=== PATIENT | female | born 1940 | race Caucasian/White ===

== ENCOUNTER 2017-06-15 15:22 | Outpatient (CLI) | payer MEDICARE, OTHER ==
--- NOTE | 2017-06-15 16:12 | XRAY Report ---
TWO-VIEW BILATERAL KNEES: 06/15/2017 CLINICAL INDICATION: Knee pain. FINDINGS: Frontal and lateral views of the bilateral knees demonstrate mild degenerative changes. T here is no evidence of acute fracture. No effusion is present. IMPRESSION: MILD BILATERAL OSTEOARTHRITIS. JOB #: [id number] EXT JOB #:[id number]
== END 2017-06-15 15:23 | disposition home or self-care (01) ==
LOC: DI 15:22
PROVIDERS: ATTEND Family Medicine
DX: M25.561 Pain in right knee (principal); M25.562 Pain in left knee
CPT/HCPCS: 73565

== ENCOUNTER 2017-09-20 14:38 | Outpatient (CLI) | payer MEDICARE, OTHER ==
--- NOTE | 2017-09-24 14:05 | Mammography Report ---
DIGITAL SCREENING MAMMOGRAM: 09/20/2017 CLINICAL INDICATION: A 77-year-old for screening. COMPARISON: 08/2016, 08/2014, 08/2013, 08/2012, 07/2011, 07/2010 TECHNIQUE: Routine CC and MLO projections were obtained of the breasts. FINDINGS: The breasts again demonstrate scattered fibroglandular densities bilaterally. Coarse and punctate, typically benign calcifications are present. In the left anterior retroareolar breast, the re are two small adjacent nodules. Further evaluation with spot compression views and possible ultra sound is recommended. No mammographically suspicious findings are appreciated in the right breast. IMPRESSION: INCOMPLETE EXAMINATION. RECOMMENDATION: Additional evaluation of the left breast as above. BIRADS CATEGORY 0 - INCOMPLETE. STANDARD QUALIFYING STATEMENTS 1. This examination was reviewed with the aid of Computer-Aided Detection (CAD). 2. A negative or benign imaging report should not delay biopsy if clinically suspicious findings are present. Consider surgical consultation if warranted. More than 5% of cancers are not identified by i maging. 3. Dense breasts may obscure an underlying neoplasm. JOB #: [id number] EXT JOB #:[id number]
== END 2017-09-20 14:39 | disposition home or self-care (01) ==
LOC: DI.N 14:38
PROVIDERS: ATTEND Family Medicine
DX: Z12.31 Encounter for screening mammogram for malignant neoplasm of breast (principal); N63.42 Unspecified lump in left breast, subareolar
CPT/HCPCS: 77067

== ENCOUNTER 2017-10-16 14:21 | Outpatient (CLI) | payer MEDICARE, OTHER ==
--- NOTE | 2017-10-17 15:49 | Ultrasound Report ---
ADDITIONAL VIEWS LEFT BREAST: 10/16/2017 HISTORY: Follow up abnormal screening mammogram 09/20/2017. TECHNIQUE: Additional spot compression and true lateral views are obtained of the retroareolar left breast. The nodular density seen on the prior mammogram persists on additional views. Ultrasound is performed the same day. LEFT BREAST ULTRASOUND Real-time scanning by the installation and repair technician with saved static images reviewed. Corresponding to the mammographic abnormality in the retroareolar left breast is a cyst measuring 4 x 4 x 5 mm. There are well defined margins, posterior through transmission, and an accentuated back wall. No solid mass is seen. IMPRESSION: BENIGN FINDING LEFT BREAST. BIRADS CATEGORY: 2, BENIGN FINDINGS. SUGGEST RETURN TO ROUTINE SCREENING IN 12 MONTHS. STANDARD QUALIFYING STATEMENTS 1. This examination was reviewed with the aid of Computed-Aided Detection (CAD) . 2. A negative or benign imaging report should not delay biopsy if clinically suspicious findings are present. Consider surgical consultation if warranted. More than 5% of cancers are not identified by imaging. 3. Dense breasts may obscure an underlying neoplasm. :9 JOB #: [id number] EXT JOB #: [id number] SERAFIN
== END 2017-10-16 14:22 | disposition home or self-care (01) ==
LOC: DI 14:21
PROVIDERS: ATTEND Family Medicine
DX: N60.02 Solitary cyst of left breast (principal)
CPT/HCPCS: 76642; G0206

== ENCOUNTER 2017-12-05 10:30 | Outpatient (CLI) | payer MEDICARE, OTHER | END 2017-12-05 10:31 | disposition home or self-care (01) | LOC: LAB.WCP 10:30 | PROVIDERS: ATTEND Physician Assistant Medical | DX: R35.1 Nocturia (principal) | CPT/HCPCS: 87086 ==

== ENCOUNTER 2017-12-12 09:48 | Outpatient (CLI) | payer MEDICARE, OTHER ==
--- NOTE | 2017-12-12 14:06 | Ultrasound Report ---
DATE OF SERVICE: 12/12/2017 COMPLETE ABDOMINAL ULTRASOUND: 12/12/2017 CLINICAL INDICATION: Pain. TECHNIQUE: Real-time scanning was performed with personnel representative static images obtained. FINDINGS: The liver measures 17 cm. Hepatic echogenicity is increased, compatible with fatty infiltration. Incidental cysts are present, measuring up to 1.4 cm in the right lobe and 3.9 cm in the left lobe. No solid hepatic lesion or intrahepatic biliary dilatation is seen. The common bile duct measures 5 mm. The gallbladder is unremarkable. The pancreas appears normal. The kidneys are normal, with the right measuring 10.1 cm and the left measuring 10.4 cm. The spleen measures 8.5 cm, and demonstrates normal echotexture. The abdominal aorta is normal in caliber. The inferior vena cava is unremarkable. No free fluid is present. IMPRESSION: FATTY INFILTRATION OF THE LIVER. TD: 12/12/2017 15:05
== END 2017-12-12 09:49 | disposition home or self-care (01) ==
LOC: DI 09:48
PROVIDERS: ATTEND Physician Assistant Medical
DX: K76.0 Fatty (change of) liver, not elsewhere classified (principal)
CPT/HCPCS: 76700

== ENCOUNTER 2017-12-13 13:11 | Outpatient (CLI) | payer MEDICARE, OTHER ==
--- NOTE | 2017-12-13 16:23 | Ultrasound Report ---
DATE OF SERVICE: 12/13/2017 PELVIC ULTRASOUND: 12/13/2017 CLINICAL INDICATION: Left pelvic pain. TECHNIQUE: Transabdominal pelvic ultrasound performed for global evaluation. Transvaginal pelvic ultrasound performed for detailed evaluation. Real-time scanning performed and static images obtained. FINDINGS: The uterus is retroverted, measuring 6.2 x 4.0 x 2.7 cm. The endometrial echo complex measures 6 mm. No focal myometrial lesion is identified. The right ovary was not confidently identified on transabdominal or transvaginal imaging. No right adnexal mass is seen. The left ovary measures 1.5 x 0.9 x 0.8 cm, and appears unremarkable. No free fluid is present. IMPRESSION: NONVISUALIZATION OF THE RIGHT OVARY, BUT NO EVIDENCE OF RIGHT ADNEXAL MASS. NORMAL UTERUS AND LEFT OVARY. TD: 12/13/2017 16:22
== END 2017-12-13 13:12 | disposition home or self-care (01) ==
LOC: DI 13:11
PROVIDERS: ATTEND Physician Assistant Medical
DX: R10.2 Pelvic and perineal pain (principal); R10.32 Left lower quadrant pain
CPT/HCPCS: 76830; 76856

== ENCOUNTER 2017-12-18 14:45 | Outpatient (CLI) | payer MEDICARE, OTHER | END 2017-12-18 14:46 | disposition home or self-care (01) | LOC: LAB.WCP 14:45 | PROVIDERS: ATTEND Family Medicine | DX: N39.0 Urinary tract infection, site not specified (principal) | CPT/HCPCS: 87086 ==

== ENCOUNTER 2017-12-28 08:00 | Outpatient (CLI) | payer MEDICARE, OTHER ==
[2017-12-28 13:47] LABS: BASOPHILS % (AUTO) 0.5 %; EOSINOPHILS # (AUTO) 0.2 10^3/uL (0.0-0.7); EOSINOPHILS % (AUTO) 2.4 %; HGB - HEMOGLOBIN 13.2 g/dL (12.0-16.0); LYMPHOCYTES # (AUTO) 1.8 10^3/uL (1.5-3.5); LYMPHOCYTES % (AUTO) 20.9 %; MEAN CORPUSCULAR HEMOGLOBIN 31.3 pg (27.0-31.0); MEAN CORPUSCULAR HGB CONC 33.7 g/dL (32.0-36.0); MEAN PLATELET VOLUME 8.5 fL (7.9-10.8); MONOCYTES # (AUTO) 0.8 10^3/uL (0.0-1.0); MONOCYTES % (AUTO) 8.6 %; NEUTROPHILS # (AUTO) 5.9 10^3/uL (1.5-6.6); NEUTROPHILS % (AUTO) 67.6 %; PLT - PLATELET COUNT 250 10^3/uL (130-450); RED BLOOD COUNT 4.22 10^6/uL (4.20-5.40); RED CELL DISTRIBUTION WIDTH 13.3 % (12.0-15.0); WHITE BLOOD COUNT 8.8 x10^3/uL (4.8-10.8)
[2017-12-28 14:08] LABS: HB2 TOTAL 14.3 g/dL; HEMOGLOBIN A1C 0.6 g/dL
[2017-12-28 14:12] LABS: ALBUMIN 3.9 g/dL (3.2-5.5); ALBUMIN/GLOBULIN RATIO 1.2 (1.0-2.2); ALKALINE PHOSPHATASE 55 IU/L (42-121); ALT ALANINE AMINOTRANSFERASE 18 IU/L (10-60); AST ASPARTATE AMINOTRANSFERASE 19 IU/L (10-42); BILIRUBIN,TOTAL 0.5 mg/dL (0.2-1.0); BUN - BLOOD UREA NITROGEN 19 mg/dL (6-20); CALCIUM 9.4 mg/dL (8.5-10.3); CARBON DIOXIDE - CO2 28 mmol/L (21-32); CHLORIDE 104 mmol/L (101-111); CHOL/HDL RATIO 6.7 (<4.4); CHOLESTEROL 242 mg/dL; CREATININE 0.7 mg/dL (0.4-1.0); GFR - MDRD 81 (>89); GLUCOSE 113 mg/dL (70-100); HDL CHOLESTEROL 36 mg/dL; LDL CHOLESTEROL,CALCULATED 148 mg/dL; LDL/HDL RATIO 4.1 (<4.4); SODIUM 137 mmol/L (135-145); TOTAL PROTEIN 7.2 g/dL (6.7-8.2); VLDL CHOLESTEROL 58 mg/dL
== END 2017-12-28 08:01 | disposition home or self-care (01) ==
LOC: LAB.WCP 08:00
PROVIDERS: ATTEND Family Medicine
DX: I10 Essential (primary) hypertension (principal); R53.83 Other fatigue; E78.5 Hyperlipidemia, unspecified; E88.81 Metabolic syndrome and other insulin resistance; R73.01 Impaired fasting glucose
CPT/HCPCS: 36415; 80053; 80061; 83036; 83721; 84443; 85025

== ENCOUNTER 2018-02-12 14:52 | Outpatient (CLI) | payer MEDICARE, OTHER | END 2018-02-12 14:53 | disposition home or self-care (01) | LOC: LAB.R 14:52 | PROVIDERS: ATTEND Family Medicine | DX: N39.0 Urinary tract infection, site not specified (principal) | CPT/HCPCS: 87086 ==

== ENCOUNTER 2018-03-19 14:20 | Outpatient (CLI) | payer MEDICARE, OTHER ==
--- NOTE | 2018-03-19 15:16 | XRAY Report ---
LEG LENGTH SCANOGRAM: 03/19/2018 CLINICAL INDICATION: Leg length discrepancy. FINDINGS: Frontal scanogram of the lower extremities was obtained. The right upper leg, from acetabular roof to tibial plateau, measures 41.8 cm, and the left leg measures 41.3 cm. The right lower leg, from tibial plateau to the talar dome, measures 31.6 cm, and the left leg measures 31.2 cm. IMPRESSION: 9 MM LEG LENGTH DISCREPANCY ABOVE. TD: 03/19/2018 15:14
== END 2018-03-19 14:21 | disposition home or self-care (01) ==
LOC: DI 14:20
PROVIDERS: ATTEND Family Medicine
DX: M21.70 Unequal limb length (acquired), unspecified site (principal)
CPT/HCPCS: 77073

== ENCOUNTER 2018-09-12 15:41 | Outpatient (CLI) | payer MEDICARE, OTHER ==
--- NOTE | 2018-09-13 04:30 | Ultrasound Report ---
Reason: LEG EDEMA, LEFT Procedure Date: 09/12/2018 Accession Number: [id number] / [id number] Procedure: US - Duplex Ext Veins Left CPT Code: FULL RESULT: EXAM: LEFT LOWER EXTREMITY VENOUS ULTRASOUND EXAM DATE: 09/12/2018 04:12 PM. CLINICAL HISTORY: LEG EDEMA, LEFT. COMPARISON: None. TECHNIQUE: Real-time sonographic vascular imaging was performed by the electric shipyard operator through the lower extremity utilizing both color-flow and Doppler spectral analysis. Multiple traffic workforce representative static images were saved for review. FINDINGS: Common Femoral Vein (CFV): Normal. CFV-GSV Junction: Normal. Profunda Femoral Vein (PFV): Normal. Femoral Vein (FV) Prox: Normal. Femoral Vein (FV) Mid: Normal. Femoral Vein (FV) Dist: Normal. Popliteal Vein: Normal. Posterior Tibial Veins: Normal. Peroneal Veins: Normal. Other: None. IMPRESSION: No evidence for left leg deep venous thrombosis. RADIA
== END 2018-09-12 15:42 | disposition home or self-care (01) ==
LOC: DI 15:41
PROVIDERS: ATTEND Family Medicine
DX: R60.0 Localized edema (principal)

== ENCOUNTER 2018-11-13 14:38 | Outpatient (CLI) | payer MEDICARE, OTHER ==
--- NOTE | 2018-11-14 08:31 | Mammography Report ---
Reason: SCREENING MAMMO Procedure Date: 11/13/2018 Accession Number: [id number] / [id number] Procedure: MGN - Screening Mammo Dig Bilat CPT Code: FULL RESULT: EXAM: Screening Mammo Dig Bilat DATE: 11/13/2018 3:02 PM CLINICAL HISTORY: Screening encounter. History of 20 year hormone therapy. TECHNIQUE: Bilateral CC, laterally exaggerated CC, MLO views were obtained. COMPARISON: 10/16/2017 through 08/18/2013. FINDINGS: The breasts demonstrate diffuse fatty replacement bilaterally. Coarse typically benign calcifications are seen bilaterally. Known left breast cyst appears unchanged, therefore benign. No suspicious masses, clustered microcalcifications, or regions of architectural distortion are identified. IMPRESSION: Benign findings RECOMMENDATION: Routine annual screening unless otherwise clinically indicated. BIRADS CATEGORY 2: Benign findings STANDARD QUALIFYING STATEMENTS: 1. This examination was reviewed with the aid of Computer-Aided Detection (CAD). 2. A negative or benign imaging report should not preclude biopsy if clinically suspicious findings are present. 3. Dense breasts may obscure an underlying neoplasm. 4. This examination was reviewed without the aid of 3D breast imaging (tomosynthesis).
== END 2018-11-13 14:39 | disposition home or self-care (01) ==
LOC: DI.N 14:38
DX: Z12.31 Encounter for screening mammogram for malignant neoplasm of breast (principal)
CPT/HCPCS: 77067

== ENCOUNTER → 2019-07-07 | Outpatient (CLI) | payer MEDICARE, OTHER ==
[2019-07-07 13:00] LABS: ALBUMIN 3.8 g/dL (3.2-5.5); ALBUMIN/GLOBULIN RATIO 1.1 (1.0-2.2); ALKALINE PHOSPHATASE 56 IU/L (42-121); ALT ALANINE AMINOTRANSFERASE 17 IU/L (10-60); AST ASPARTATE AMINOTRANSFERASE 20 IU/L (10-42); BILIRUBIN,TOTAL 0.5 mg/dL (0.2-1.0); BUN - BLOOD UREA NITROGEN 23 mg/dL (6-20); CALCIUM 9.5 mg/dL (8.5-10.3); CARBON DIOXIDE - CO2 29 mmol/L (21-32); CHLORIDE 102 mmol/L (101-111); CHOL/HDL RATIO 4.3 (<4.4); CHOLESTEROL 188 mg/dL; CREATININE 0.8 mg/dL (0.4-1.0); GFR - MDRD 69 (>89); GLUCOSE 112 mg/dL (70-100); HDL CHOLESTEROL 44 mg/dL; LDL CHOLESTEROL,CALCULATED 106 mg/dL; LDL/HDL RATIO 2.4 (<4.4); SODIUM 139 mmol/L (135-145); TOTAL PROTEIN 7.3 g/dL (6.7-8.2); VLDL CHOLESTEROL 38 mg/dL
[2019-07-07 13:03] LABS: HB2 TOTAL 14.9 g/dL; HEMOGLOBIN A1C 0.59 g/dL; HEMOGLOBIN A1C % 5.8 % (4.6-6.2)
[2019-07-09 16:01] LABS: ALBUMIN 3.9 g/dL (3.8-4.8); ALPHA 1 GLOBULIN 0.3 g/dL (0.2-0.3); ALPHA 2 GLOBULIN 0.9 g/dL (0.5-0.9); BETA 1 GLOBULIN 0.5 g/dL (0.4-0.6); BETA 2 GLOBULIN 0.4 g/dL (0.2-0.5); GAMMA GLOBULIN 1.1 g/dL (0.8-1.7)
[2019-07-11 03:46] LABS: ALPHA-TOCOPHEROL 19.6 mg/L (5.7-19.9); BETA-GAMMA-TOCOPHEROL 1.9 mg/L (< 4.4)
== END ==
LOC: LAB.WCP 08:00
PROVIDERS: ATTEND Family Medicine
DX: G62.9 Polyneuropathy, unspecified (principal); I10 Essential (primary) hypertension; E78.5 Hyperlipidemia, unspecified; R73.9 Hyperglycemia, unspecified
CPT/HCPCS: 36415; 80053; 80061; 81599; 82607; 83036; 83721; 83921; 84155; 84165; 84207; 84425; 84446; 85651; 86140; 86334

== ENCOUNTER 2019-07-08 08:50 | Outpatient (CLI) | payer MEDICARE, OTHER ==
--- NOTE | 2019-07-09 10:36 | Ultrasound Report ---
Reason: NEUROPATHY, HYPERGLYCEMIA, LACUNAR INFARCTION, LEF Procedure Date: 07/08/2019 Accession Number: [id number] / [id number] Procedure: US - Carotid Doppler Complete CPT Code: FULL RESULT: EXAM: BILATERAL CAROTID AND VERTEBRAL ARTERY DUPLEX DOPPLER ULTRASOUND: EXAM DATE: 07/08/2019 01:39 PM CLINICAL HISTORY: Neuropathy, hyperglycemia, lacunar infarction, left. COMPARISON: None. TECHNIQUE: Grayscale imaging, color Doppler, and duplex spectral Doppler were used to evaluate the carotid and vertebral arteries bilaterally. Static images were obtained. FINDINGS: There is mild bilateral intimal thickening as well as subjectively mild amount of hyperechoic plaque in the bifurcation regions on grayscale Doppler occupying less than 30% of the lumen as seen. No significant plaque is identified in the right or left common carotid arteries. Normal antegrade flow is present in bilateral vertebral arteries. VELOCITIES (cm/sec): Right CCA mid: PSV 97 cm/sec CCA dist: PSV 63 cm/sec ICA prox: PSV 68 cm/sec, EDV 20 cm/sec ICA mid: PSV 63 cm/sec, EDV 16 cm/sec ICA dist: PSV 66 cm/sec, EDV 18 cm/sec ECA: PSV 105 cm/sec Vert: PSV 42 cm/sec ICA/CCA: 0.7 Left CCA mid: PSV 76 cm/sec CCA dist: PSV 84 cm/sec ICA prox: PSV 69 cm/sec, EDV 15 cm/sec ICA mid: PSV 71 cm/sec, EDV 20 cm/sec ICA dist: PSV 65 cm/sec, EDV 18 cm/sec ECA: PSV 67 cm/sec Vert: PSV 42 cm/sec ICA/CCA: 0.8 ICA diameter stenosis: Right: <50% by velocity and <70% by NASCET criteria. Left: <50% by velocity and <70% by NASCET criteria. IMPRESSION: 1. Mild bilateral carotid artery plaquing limited to the regions of the carotid bifurcations. 2. In the right carotid artery there are no elevated carotid artery velocities to suggest hemodynamically significant stenosis. 3. In the left carotid artery there are no elevated carotid artery velocities to suggest hemodynamically significant stenosis. 4. Normal antegrade flow is present in bilateral vertebral arteries. General Recommendations: Stenosis =50% ICA - Follow-up ultrasound 6-12 months Stenosis <50% ICA - High Risk Patient with plaque - Follow-up ultrasound 1-2 years Normal Study but High Risk Patient - Follow-up ultrasound 3-5 years Management recommendations and diagnostic criteria are based on current IAC endorsed standards in Carotid Artery Stenosis: Grayscale and Doppler Ultrasound Diagnosis. Validated velocity measurements with angiographic measurements and velocity criteria are extrapolated from diameter data as defined by the Society of Radiologists in Ultrasound Consensus Conference Radiology 2003; 229;340-346. RADIA
== END 2019-07-08 08:51 | disposition home or self-care (01) ==
LOC: DI 08:50
PROVIDERS: ATTEND Internal Medicine
DX: G62.9 Polyneuropathy, unspecified (principal); R73.9 Hyperglycemia, unspecified; I63.81 Other cerebral infarction due to occlusion or stenosis of small artery; R20.0 Anesthesia of skin; I35.1 Nonrheumatic aortic (valve) insufficiency
CPT/HCPCS: 93306; 93880

== ENCOUNTER 2019-12-03 11:22 | Outpatient (CLI) | payer MEDICARE, OTHER ==
--- NOTE | 2019-12-03 15:03 | Mammography Report ---
Reason: ROUTINE MAMMO Procedure Date: 12/03/2019 Accession Number: [id number] / [id number] Procedure: MGN - Screening Mammo Dig Bilat CPT Code: Final Report FULL RESULT: EXAM: Screening Mammo Dig Bilat DATE: 12/03/2019 11:42 AM CLINICAL HISTORY: The patient is an asymptomatic 79-year-old female. No family history breast cancer TECHNIQUE: (B) - Bilateral CC, laterally exaggerated CC, MLO views were obtained. COMPARISON: 11/13/2018, 09/20/2017, 09/05/2016, 08/31/2014 and 08/18/2013 PARENCHYMAL PATTERN: (A) - The breasts demonstrate scattered fibroglandular densities bilaterally. FINDINGS: The pattern of asymmetry is stable given positional variation. Few scattered calcific lesions noted. Isodense small masses (known cysts) in the left breast are stable. There are no suspicious masses, calcifications, or areas of distortion. IMPRESSION: Benign findings. BI-RADS category 2. RECOMMENDATION: (ANNUAL) - Recommend routine annual screening mammography. BI-RADS CATEGORY: STANDARD QUALIFYING STATEMENTS: A negative or benign imaging report should not preclude biopsy if clinically suspicious findings are present. Dense breasts may obscure an underlying neoplasm.
== END 2019-12-03 11:23 | disposition home or self-care (01) ==
LOC: DI.N 11:22
DX: Z12.31 Encounter for screening mammogram for malignant neoplasm of breast (principal)
CPT/HCPCS: 77067

== ENCOUNTER 2020-04-21 08:00 | Outpatient (CLI) | payer MEDICARE, OTHER ==
[2020-04-21 18:30] LABS: BASOPHILS % (AUTO) 0.3 %; EOSINOPHILS # (AUTO) 0.2 10^3/uL (0.0-0.7); EOSINOPHILS % (AUTO) 2.4 %; HGB - HEMOGLOBIN 13.9 g/dL (12.0-16.0); LYMPHOCYTES # (AUTO) 2.1 10^3/uL (1.5-3.5); LYMPHOCYTES % (AUTO) 24.4 %; MEAN CORPUSCULAR HEMOGLOBIN 32.1 pg (27.0-31.0); MEAN CORPUSCULAR HGB CONC 32.1 g/dL (32.0-36.0); MEAN PLATELET VOLUME 10.2 fL (7.9-10.8); MONOCYTES % (AUTO) 11.1 %; NEUTROPHILS # (AUTO) 5.4 10^3/uL (1.5-6.6); NEUTROPHILS % (AUTO) 61.2 %; PLT - PLATELET COUNT 250 10^3/uL (130-450); RED BLOOD COUNT 4.33 10^6/uL (4.20-5.40); WHITE BLOOD COUNT 8.7 x10^3/uL (4.8-10.8)
== END 2020-04-21 23:59 | disposition home or self-care (01) ==
LOC: LAB.WCP 08:00
PROVIDERS: ATTEND Family Medicine
DX: E53.8 Deficiency of other specified B group vitamins (principal)
CPT/HCPCS: 36415; 82607; 83921; 85025

== ENCOUNTER 2020-10-27 16:03 | Outpatient (CLI) | payer MEDICARE, OTHER ==
[2020-10-27 18:14] LABS: BASOPHILS % (AUTO) 0.3 %; EOSINOPHILS # (AUTO) 0.2 10^3/uL (0.0-0.7); EOSINOPHILS % (AUTO) 1.8 %; HCT - HEMATOCRIT 42.7 % (37.0-47.0); HGB - HEMOGLOBIN 13.9 g/dL (12.0-16.0); LYMPHOCYTES # (AUTO) 2.3 10^3/uL (1.5-3.5); LYMPHOCYTES % (AUTO) 21.7 %; MEAN CORPUSCULAR HEMOGLOBIN 31.3 pg (27.0-31.0); MEAN CORPUSCULAR HGB CONC 32.6 g/dL (32.0-36.0); MEAN CORPUSCULAR VOLUME 96.2 fL (81.0-99.0); MEAN PLATELET VOLUME 10.2 fL (7.9-10.8); MONOCYTES # (AUTO) 1.2 10^3/uL (0.0-1.0); MONOCYTES % (AUTO) 11.6 %; NEUTROPHILS # (AUTO) 6.9 10^3/uL (1.5-6.6); NEUTROPHILS % (AUTO) 64.2 %; PLT - PLATELET COUNT 273 10^3/uL (130-450); RED BLOOD COUNT 4.44 10^6/uL (4.20-5.40); WHITE BLOOD COUNT 10.7 x10^3/uL (4.8-10.8)
[2020-10-27 18:33] LABS: ALBUMIN 4.2 g/dL (3.2-5.5); ALBUMIN/GLOBULIN RATIO 1.2 (1.0-2.2); ALKALINE PHOSPHATASE 58 IU/L (42-121); ALT ALANINE AMINOTRANSFERASE 19 IU/L (10-60); AST ASPARTATE AMINOTRANSFERASE 19 IU/L (10-42); BILIRUBIN,TOTAL 0.7 mg/dL (0.2-1.0); BUN - BLOOD UREA NITROGEN 22 mg/dL (6-20); CALCIUM 10.2 mg/dL (8.5-10.3); CARBON DIOXIDE - CO2 28 mmol/L (21-32); CHLORIDE 103 mmol/L (101-111); CHOLESTEROL 210 mg/dL; CREATININE 0.9 mg/dL (0.4-1.0); GFR - MDRD 60 (>89); GLUCOSE 120 mg/dL (70-100); HDL CHOLESTEROL 42 mg/dL; LDL CHOLESTEROL,CALCULATED 111 mg/dL; LDL/HDL RATIO 2.6 (<4.4); POTASSIUM 3.8 mmol/L (3.5-5.0); SODIUM 141 mmol/L (135-145); TOTAL PROTEIN 7.7 g/dL (6.7-8.2); TRIGLYCERIDES 287 mg/dL; VLDL CHOLESTEROL 57 mg/dL
[2020-10-27 18:43] LABS: THYROID STIMULATING HORMONE 2.71 uIU/mL (0.34-5.60)
[2020-10-27 18:57] LABS: ESTIMATED AVERAGE GLUCOSE 126 mg/dL (70-100)
== END 2020-10-27 23:59 | disposition home or self-care (01) ==
LOC: LAB.WCP 16:03
PROVIDERS: ATTEND Family Medicine
DX: E88.1 Lipodystrophy, not elsewhere classified (principal); I10 Essential (primary) hypertension; R73.01 Impaired fasting glucose; E53.8 Deficiency of other specified B group vitamins
CPT/HCPCS: 36415; 80053; 80061; 82607; 83036; 83721; 84443; 85025

== ENCOUNTER 2020-12-06 15:17 | Outpatient (CLI) | payer MEDICARE, OTHER ==
--- NOTE | 2020-12-07 09:45 | Mammography Report ---
BILATERAL DIGITAL SCREENING MAMMOGRAM 3D/2D: 12/06/2020 CLINICAL: Routine screening. Comparison is made to exams dated: 12/03/2019 mammogram, 11/13/2018 mammogram, 10/16/2017 mammogram, 10/16/2017 ultrasound, 09/20/2017 mammogram, and 09/05/2016 mammogram - [facility]. The tissue of both breasts is predominantly fatty. There is a possible 0.7 cm irregular equal density focal asymmetry in the right breast at 9 o'clock m iddle depth. This is more prominent. There is possible architectural distortion associated with the focal asymmetry. No other significant masses, calcifications, or other findings are seen in either breast. IMPRESSION: INCOMPLETE: NEEDS ADDITIONAL IMAGING EVALUATION The possible 0.7 cm irregular equal density focal asymmetry in the right breast is indeterminate. Ad ditional views with possible ultrasound are recommended. This exam was interpreted at Station ID: [id number]. NOTE: For mammograms, a report in lay terms will be sent to the patient. Approximately 15% of breast malignancies will not be visualized mammographically. In the management of a palpable breast mass, a negative mammogram must not discourage biopsy of a clinically suspicious lesion. Electronically Signed By: Constantine Jaffe M.D. aty/:12/06/2020 16:39:10 ACR BI-RADS Category 0: Incomplete 3340F PARENCHYMAL PATTERN: (F) - The breast(s) demonstrate(s) diffuse fatty replacement. BI-RADS CATEGORY: (0) - 0 Mammo and [place] [id number] Immediate follow-up LATERALITY: (R)
== END 2020-12-06 15:18 | disposition home or self-care (01) ==
LOC: DI.N 15:17
DX: Z12.31 Encounter for screening mammogram for malignant neoplasm of breast (principal); R92.8 Other abnormal and inconclusive findings on diagnostic imaging of breast

== ENCOUNTER 2021-01-03 10:30 | Outpatient (CLI) | payer MEDICARE, OTHER ==
--- NOTE | 2021-01-04 13:38 | Ultrasound Report ---
LIMITED ULTRASOUND OF RIGHT BREAST: 01/03/2021 CLINICAL: Patient returns today to evaluate a focal asymmetry in the right breast. Comparison is made to exams dated: 01/03/2021 mammogram, 12/06/2020 mammogram, 12/03/2019 mammogram, 11/13/2018 mammogram, 10/16/2017 mammogram, and 10/16/2017 ultrasound - [facility]. Real-time ultrasound of the right breast upper outer quadrant was performed. [place] scale images of th e real-time examination were reviewed. No significant abnormalities were seen sonographically in the right breast. IMPRESSION: PROBABLY BENIGN There is no sonographic abnormality seen in the right breast to correspond with the previously descri bed mammographic finding which is favored to represent normal fibroglandular tissue. A follow-up right mammogram in 6 months is recommended to demonstrate stability. Findings and recommendations were conveyed to the patient during today's evaluation. This exam was interpreted at Station ID: [id number]. Electronically Signed By: Constantine Jaffe M.D. aty/:01/03/2021 12:25:55 Ultrasound BI-RADS: 3 Probably benign BI-RADS CATEGORY: (3) - 3 Mammogram [id number] 6 month follow-up LATERALITY: (R)
--- NOTE | 2021-01-04 13:38 | Mammography Report ---
UNILATERAL RIGHT DIGITAL DIAGNOSTIC MAMMOGRAM 3D/2D: 01/03/2021 CLINICAL: Patient returns today to evaluate a focal asymmetry in the right breast. Comparison is made to exams dated: 12/06/2020 mammogram, 12/03/2019 mammogram, 11/13/2018 mammogram, 10/16/2017 mammogram, and 09/20/2017 mammogram - [facility]. The tissue of right breast is predominantly fatty. The previously described possible 0.7 cm irregular equal density focal asymmetry in the right breast at 9 o'clock middle depth appears much less prominent and decreased in size, demonstrating near compl ete dispersion. The possible architectural distortion associated with the focal asymmetry on comparis on mammogram is not appreciated on today's study. No other significant masses or calcifications are seen in the breast. IMPRESSION: INCOMPLETE: NEEDS ADDITIONAL IMAGING EVALUATION The previously described possible 0.7 cm irregular equal density focal asymmetry in the right breast at 9 o'clock middle depth has demonstrated near complete resolution and is likely fibroglandular tiss ue but remains indeterminate. An ultrasound is recommended for further evaluation and is scheduled to immediately follow this exami nation. This exam was interpreted at Station ID: [id number]. NOTE: For mammograms, a report in lay terms will be sent to the patient. Approximately 15% of breast malignancies will not be visualized mammographically. In the management of a palpable breast mass, a negative mammogram must not discourage biopsy of a clinically suspicious lesion. Electronically Signed By: Constantine Jaffe M.D. aty/:01/03/2021 12:24:08 ACR BI-RADS Category 0: Incomplete 3340F PARENCHYMAL PATTERN: (F) - The breast(s) demonstrate(s) diffuse fatty replacement. BI-RADS CATEGORY: (0) - 0 Ultrasound [id number] Immediate follow-up LATERALITY: (R)
== END 2021-01-03 10:31 | disposition home or self-care (01) ==
LOC: DI 10:30
PROVIDERS: ATTEND Family Medicine
DX: R92.8 Other abnormal and inconclusive findings on diagnostic imaging of breast (principal)
CPT/HCPCS: 76642; 77061; 77065; G0279

== ENCOUNTER 2021-03-07 17:35 | Outpatient (CLI) | payer MEDICARE, OTHER ==
--- NOTE | 2021-03-08 13:44 | XRAY Report ---
PROCEDURE: Hip w/Pelvis 1V LT INDICATIONS: L HIP PX TECHNIQUE: AP pelvis with lateral view(s) of the left hip(s). COMPARISON: Bilateral hip x-ray 09/05/2017 FINDINGS: Bones: No fractures or dislocations. Pelvic ring appears intact. No suspicious bony lesions. Ther e is moderate to severe right and moderate left degenerative hip joint space narrowing. Areas of inte rval subchondral sclerosis and cystic formation are noted predominantly on the right. Soft tissues: The visualized bowel gas pattern is normal. No suspicious soft tissue calcifications. IMPRESSION: Right greater than left hip osteoarthritis as above. Reviewed by: Merari Farrell MD on 03/08/2021 12:42 PM [facility] Approved by: Merari Farrell MD on 03/08/2021 12:42 PM [facility] Station ID: [id number]
== END 2021-03-07 23:59 | disposition home or self-care (01) ==
LOC: DI.N 17:35
PROVIDERS: ATTEND Family Medicine
DX: M16.0 Bilateral primary osteoarthritis of hip (principal)

== ENCOUNTER 2021-05-26 13:28 | Outpatient (CLI) | payer MEDICARE, OTHER ==
[2021-05-26 18:05] LABS: BASOPHILS # (AUTO) 0.1 10^3/uL (0.0-0.1); BASOPHILS % (AUTO) 0.4 %; EOSINOPHILS # (AUTO) 0.2 10^3/uL (0.0-0.7); EOSINOPHILS % (AUTO) 2.1 %; HCT - HEMATOCRIT 41.9 % (37.0-47.0); HGB - HEMOGLOBIN 13.4 g/dL (12.0-16.0); LYMPHOCYTES # (AUTO) 2.7 10^3/uL (1.5-3.5); LYMPHOCYTES % (AUTO) 24.5 %; MEAN CORPUSCULAR HEMOGLOBIN 29.9 pg (27.0-31.0); MEAN CORPUSCULAR VOLUME 93.5 fL (81.0-99.0); MEAN PLATELET VOLUME 10.3 fL (7.9-10.8); MONOCYTES # (AUTO) 1.2 10^3/uL (0.0-1.0); MONOCYTES % (AUTO) 10.8 %; NEUTROPHILS # (AUTO) 6.9 10^3/uL (1.5-6.6); NEUTROPHILS % (AUTO) 61.8 %; PLT - PLATELET COUNT 326 10^3/uL (130-450); RED BLOOD COUNT 4.48 10^6/uL (4.20-5.40); WHITE BLOOD COUNT 11.2 x10^3/uL (4.8-10.8)
[2021-05-26 18:22] LABS: ALBUMIN 4.1 g/dL (3.2-5.5); ALBUMIN/GLOBULIN RATIO 1.1 (1.0-2.2); ALKALINE PHOSPHATASE 63 IU/L (42-121); ALT ALANINE AMINOTRANSFERASE 21 IU/L (10-60); AST ASPARTATE AMINOTRANSFERASE 21 IU/L (10-42); BILIRUBIN,TOTAL 0.6 mg/dL (0.2-1.0); BUN - BLOOD UREA NITROGEN 21 mg/dL (6-20); CALCIUM 9.6 mg/dL (8.5-10.3); CARBON DIOXIDE - CO2 31 mmol/L (21-32); CHLORIDE 97 mmol/L (101-111); CHOL/HDL RATIO 3.7 (<4.4); CHOLESTEROL 176 mg/dL; CREATININE 0.6 mg/dL (0.4-1.0); GFR - MDRD 96 (>89); GLUCOSE 98 mg/dL (70-100); HDL CHOLESTEROL 48 mg/dL; LDL CHOLESTEROL,CALCULATED 64 mg/dL; LDL/HDL RATIO 1.3 (<4.4); POTASSIUM 3.8 mmol/L (3.5-5.0); SODIUM 137 mmol/L (135-145); TOTAL PROTEIN 7.8 g/dL (6.7-8.2); TRIGLYCERIDES 319 mg/dL; VLDL CHOLESTEROL 64 mg/dL
[2021-05-26 20:39] LABS: ESTIMATED AVERAGE GLUCOSE 131 mg/dL (70-100); HEMOGLOBIN A1c% 6.2 % (4.27-6.07)
== END 2021-05-26 23:59 | disposition home or self-care (01) ==
LOC: LAB.WCP 13:28
PROVIDERS: ATTEND Family Medicine
DX: E78.5 Hyperlipidemia, unspecified (principal); R73.01 Impaired fasting glucose; E53.8 Deficiency of other specified B group vitamins; I10 Essential (primary) hypertension
CPT/HCPCS: 36415; 80053; 80061; 82607; 83036; 83721; 85025

== ENCOUNTER 2021-08-15 11:06 | Outpatient (CLI) | payer MEDICARE, OTHER ==
--- NOTE | 2021-08-17 13:44 | Mammography Report ---
UNILATERAL RIGHT DIGITAL DIAGNOSTIC MAMMOGRAM 3D/2D: 08/15/2021 CLINICAL: Patient returns for a 6 month follow up of the right breast. Comparison is made to exams dated: 01/03/2021 mammogram, 12/06/2020 mammogram, 12/03/2019 mammogram, 11/13/2018 mammogram, 10/16/2017 mammogram, and 10/16/2017 ultrasound - [facility]. The tissue of right breast is predominantly fatty. The previously questioned 0.7 cm focal asymmetry in the right breast at 9 o'clock middle depth is no longer seen and is consistent with fibroglandular tissue. This is not seen in additional views. No other significant masses or calcifications are seen in the breast. IMPRESSION: BENIGN There is no abnormality seen in the right breast to correspond with the previously questioned mammogr aphy finding. This is consistent with fibroglandular tissue which was previously superimposed. There is no mammographic evidence of malignancy. Return to annual mammogram screening schedule is recommend ed. This exam was interpreted at Station ID: [id number]. NOTE: For mammograms, a report in lay terms will be sent to the patient. Approximately 15% of breast malignancies will not be visualized mammographically. In the management of a palpable breast mass, a negative mammogram must not discourage biopsy of a clinically suspicious lesion. Electronically Signed By: Isaias Jaimes M.D. jr/:08/17/2021 12:03:49 ACR BI-RADS Category 2: Benign Finding(s) 3342F PARENCHYMAL PATTERN: (F) - The breast(s) demonstrate(s) diffuse fatty replacement. BI-RADS CATEGORY: (2) - 2 Mammogram [id number] return to screening LATERALITY: (B)
== END 2021-08-15 11:07 | disposition home or self-care (01) ==
LOC: DI 11:06
PROVIDERS: ATTEND Family Medicine
DX: R92.8 Other abnormal and inconclusive findings on diagnostic imaging of breast (principal)

== ENCOUNTER 2021-09-29 08:00 | Outpatient (CLI) | payer MEDICARE, OTHER ==
[2021-09-29 18:02] LABS: BASOPHILS % (AUTO) 0.5 %; EOSINOPHILS # (AUTO) 0.1 10^3/uL (0.0-0.7); EOSINOPHILS % (AUTO) 1.6 %; HCT - HEMATOCRIT 43.9 % (37.0-47.0); HGB - HEMOGLOBIN 13.7 g/dL (12.0-16.0); LYMPHOCYTES % (AUTO) 22.6 %; MEAN CORPUSCULAR HGB CONC 31.2 g/dL (32.0-36.0); MEAN CORPUSCULAR VOLUME 96.1 fL (81.0-99.0); MEAN PLATELET VOLUME 10.9 fL (7.9-10.8); MONOCYTES % (AUTO) 10.9 %; NEUTROPHILS # (AUTO) 5.6 10^3/uL (1.5-6.6); NEUTROPHILS % (AUTO) 64.1 %; PLT - PLATELET COUNT 285 10^3/uL (130-450); RED BLOOD COUNT 4.57 10^6/uL (4.20-5.40); RED CELL DISTRIBUTION WIDTH 15.2 % (12.0-15.0); WHITE BLOOD COUNT 8.8 x10^3/uL (4.8-10.8)
[2021-09-29 18:51] LABS: ALBUMIN 4.4 g/dL (3.2-5.5); ALBUMIN/GLOBULIN RATIO 1.3 (1.0-2.2); ALKALINE PHOSPHATASE 62 IU/L (42-121); ALT ALANINE AMINOTRANSFERASE 20 IU/L (10-60); AST ASPARTATE AMINOTRANSFERASE 22 IU/L (10-42); BILIRUBIN,TOTAL 0.8 mg/dL (0.2-1.0); BUN - BLOOD UREA NITROGEN 22 mg/dL (6-20); CALCIUM 9.8 mg/dL (8.5-10.3); CARBON DIOXIDE - CO2 30 mmol/L (21-32); CHLORIDE 98 mmol/L (101-111); CREATININE 0.8 mg/dL (0.4-1.0); GFR - MDRD 69 (>89); GLUCOSE 111 mg/dL (70-100); POTASSIUM 4.2 mmol/L (3.5-5.0); SODIUM 136 mmol/L (135-145); TOTAL PROTEIN 7.8 g/dL (6.7-8.2)
[2021-09-29 19:04] LABS: CRP - C-REACTIVE PROTEIN < 1.0 mg/dL (0-1.0)
== END 2021-09-29 23:59 | disposition home or self-care (01) ==
LOC: LAB.WCP 08:00
PROVIDERS: ATTEND Nurse Practitioner
DX: I10 Essential (primary) hypertension (principal); R51.9 Headache, unspecified
CPT/HCPCS: 36415; 80053; 85025; 85651; 86140

== ENCOUNTER 2021-11-01 16:42 | Outpatient (CLI) | payer MEDICARE, OTHER ==
--- NOTE | 2021-11-02 10:39 | XRAY Report ---
PROCEDURE: Chest 2 View X-Ray INDICATIONS: SHORTNESS OF BREATH TECHNIQUE: 2 view(s) of the chest. COMPARISON: None. FINDINGS: Surgical changes and devices: None. Lungs and pleura: No pleural effusions or pneumothorax. Lungs are clear. Mediastinum: Mediastinal contours are normal. Heart is mildly enlarged Bones and chest wall: No suspicious bony abnormalities. Soft tissues appear unremarkable. IMPRESSION: 1. Mild cardiomegaly. 2. No acute cardiopulmonary disease process. Reviewed by: Genoveva Dooley MD, PhD on 11/02/2021 10:38 AM [facility] Approved by: Genoveva Dooley MD, PhD on 11/02/2021 10:38 AM [facility] Station ID: [id number]
== END 2021-11-01 16:43 | disposition home or self-care (01) ==
LOC: DI.N 16:42
PROVIDERS: ATTEND Family Medicine
DX: R06.09 Other forms of dyspnea (principal); I51.7 Cardiomegaly

== ENCOUNTER 2021-11-03 08:00 | Outpatient (CLI) | payer MEDICARE, OTHER | END 2021-11-03 23:59 | disposition home or self-care (01) | LOC: LAB.WCP 08:00 | PROVIDERS: ATTEND Family Medicine | DX: R06.09 Other forms of dyspnea (principal); Z20.822 Contact with and (suspected) exposure to COVID-19 ==

== ENCOUNTER 2021-12-27 07:57 | Outpatient (CLI) | payer MEDICARE, OTHER ==
--- NOTE | 2021-12-27 08:24 | CARDIAC PROCEDURE NOTE ---
Stress Test Report Service Date: 12/27/21 Service Time: 08:00 Ordering Provider: Otf Luke Indication for Test: Assess exertional dyspnea. Significant Medical History: Cynthia describes slowly progressive exertional dyspnea over the past 3 to 4 years, with episodic exacerbation that she attributes to psychosocial stress, due to her 's myelofibrosis and heart failure. He has become increasingly dependent on her for his care, especially over the past few months, with a corresponding generalized increase in her exertional dyspnea. Although she does feel well while continuing to participate in yoga exercise three times per week, she finds that she is no longer able to walk her 50 pound infante retriever very far, or make it back up to her house from the mailbox that is located a few hundred yards down the hill. She is able to walk up the single flight of stairs within her home but finds that she usually has to rest afterward. She also describes some associated right hip and back pain as limiting factors for exertion She denies exertional concomitants such as chest discomfort, heaviness or pressure, diaphoresis or lightheadedness. She denies orthopnea, lower extremity edema and weight gain. She had a prior diagnostic echocardiogram in June, that showed borderline concentric LVH, normal LV systolic function and wall motion, normal size left atrium and a mildly sclerotic aortic valve with mild aortic insufficiency. The study was done due to concern for possible TIA and a saline bubble study was negative for atrial shunt. Cardiac Risk Factors: Positive for treated hypertension and hyperlipidemia. Negative for tobacco smoking (quit 52 years ago) and diabetes. She is unaware of close family members with heart attack or stroke. Type of Stress Test: ETT with Echocardiography Procedure: -Exercise Treadmill Test- After signing informed consent, the patient underwent rest echo imaging, that revealed suboptimal imaging quality. Therefore Definity contrast was administered (under separate consent) and repeat images were obtained. She then performed treadmill exercise using a Modified Rod protocol. The patient exe rcised for 7 minutes 36 seconds and achieved a peak heart rate of 112 (80 percent predicted maximum heart rate for age), and an estimated workload of 4.4 METS. The test was terminated due to leg fatigue and sense of poor balance in the setting of a drop in blood pressure following initial normal increase. Resting heart rate: 75 Peak heart rate: 112 Submaximal response to exercise. Resting BP: 133/72 Peak BP: 158/70 (stage 2) Below average BP increase with exercise, with incremental BP decrease (to 144/66) in stage 3. Rhythm during exercise: Sinus rhythm with rare isolated PVCs. Symptoms: Although she described progressive dyspnea to a moderate degree, leg fatigue and sensation of poor balance were more limiting; no chest discomfort described. EKG at rest showed normal sinus rhythm, with left anterior fascicular block and incomplete right bundle branch block; small q waves present in leads V1 & V2, cannot exclude septal infarct pattern, age undetermined. EKG at peak stress showed no ischemia by EKG criteria. In Recovery blood pressure initially increased slightly (149/61) and then declined toward baseline level; HR rapidly and normally returned to resting level by 6:00. Echo imaging performed at rest and with stress will be reported separately. IHiram MD, was present throughout this treadmill stress study and supervised it in its entirety. Summary: 1) Exercise tolerance well above average for age (using age 79) as evidenced by RAMÓN of -42%. 2) Abnormal resting EKG. 3) Submaximal exercise study, with patient reaching only 80% of predicted maximal for age. 4) Abnormal BP response to exercise. 5) No ischemic changes by EKG criteria were seen at peak stress. 6) Echo image interpretation reveals normal left ventricular size and systolic function, with appropriate hyperdynamic augmentation of all segments with exercise, indicating no evidence of prior infarct or inducible ischemia. See separate report for more details. CONCLUSIONS: 1) Submaximal exercise test, with no clear evidence of ischemia by symptoms or EKG. 2) Given inability to reach target HR as well as moderate BP drop during exercise, an alternative diagnostic method (e.g. pharmacologic stress MPI or coronary CT angiogram) could be considered if concern for ischemia persists.
[2021-12-27] MEDS ORDERED: PERFLUTREN LIPID MICROSPHERES 1.65 MG/1.5 ML VIAL IVP ONE (10:40)
== END 2021-12-27 07:58 | disposition home or self-care (01) ==
LOC: DI 07:57
PROVIDERS: ATTEND Family Medicine
DX: R06.09 Other forms of dyspnea (principal); I95.89 Other hypotension
CPT/HCPCS: 93016; 93017; 93018; 93350; Q9957

== ENCOUNTER 2022-07-11 07:13 | Outpatient (CLI) | payer MEDICARE, OTHER ==
[2022-07-11 11:52] LABS: BASOPHILS # (AUTO) 0.1 10^3/uL (0.0-0.1); BASOPHILS % (AUTO) 0.5 %; EOSINOPHILS # (AUTO) 0.3 10^3/uL (0.0-0.7); EOSINOPHILS % (AUTO) 2.4 %; HCT - HEMATOCRIT 37.7 % (37.0-47.0); HGB - HEMOGLOBIN 11.8 g/dL (12.0-16.0); LYMPHOCYTES # (AUTO) 2.1 10^3/uL (1.5-3.5); LYMPHOCYTES % (AUTO) 20.2 %; MEAN CORPUSCULAR HEMOGLOBIN 29.1 pg (27.0-31.0); MEAN CORPUSCULAR HGB CONC 31.3 g/dL (32.0-36.0); MEAN CORPUSCULAR VOLUME 93.1 fL (81.0-99.0); MEAN PLATELET VOLUME 10.7 fL (7.9-10.8); MONOCYTES # (AUTO) 1.1 10^3/uL (0.0-1.0); MONOCYTES % (AUTO) 10.9 %; NEUTROPHILS # (AUTO) 6.8 10^3/uL (1.5-6.6); NEUTROPHILS % (AUTO) 65.6 %; PLT - PLATELET COUNT 294 10^3/uL (130-450); RED BLOOD COUNT 4.05 10^6/uL (4.20-5.40); RED CELL DISTRIBUTION WIDTH 14.5 % (12.0-15.0); WHITE BLOOD COUNT 10.3 x10^3/uL (4.8-10.8)
[2022-07-11 12:20] LABS: ALBUMIN 3.9 g/dL (3.2-5.5); ALKALINE PHOSPHATASE 61 IU/L (42-121); ALT ALANINE AMINOTRANSFERASE 20 IU/L (10-60); AST ASPARTATE AMINOTRANSFERASE 20 IU/L (10-42); BILIRUBIN,TOTAL 0.5 mg/dL (0.2-1.0); BUN - BLOOD UREA NITROGEN 28 mg/dL (6-20); CALCIUM 9.6 mg/dL (8.5-10.3); CARBON DIOXIDE - CO2 30 mmol/L (21-32); CHLORIDE 101 mmol/L (101-111); CHOL/HDL RATIO 4.1 (<4.4); CHOLESTEROL 177 mg/dL; CREATININE 0.8 mg/dL (0.4-1.0); GFR - MDRD 69 (>89); GLUCOSE 120 mg/dL (70-100); HDL CHOLESTEROL 43 mg/dL; LDL CHOLESTEROL,CALCULATED 103 mg/dL; LDL/HDL RATIO 2.4 (<4.4); SODIUM 139 mmol/L (135-145); TOTAL PROTEIN 7.7 g/dL (6.7-8.2); TRIGLYCERIDES 157 mg/dL; VLDL CHOLESTEROL 31 mg/dL
== END 2022-07-11 07:14 | disposition home or self-care (01) ==
LOC: LAB.N 07:13
PROVIDERS: ATTEND Physician Assistant
DX: I10 Essential (primary) hypertension (principal); E78.5 Hyperlipidemia, unspecified
CPT/HCPCS: 36415; 80053; 80061; 83721; 85025

== ENCOUNTER 2022-11-16 11:47 | Outpatient (CLI) | payer MEDICARE, OTHER ==
[2022-11-16 12:40] LABS: THYROID STIMULATING HORMONE 3.15 uIU/mL (0.34-5.60)
[2022-11-16 12:48] LABS: ESTIMATED AVERAGE GLUCOSE 123 mg/dL (70-100); HEMOGLOBIN A1c% 5.9 % (4.27-6.07)
== END 2022-11-16 11:48 | disposition home or self-care (01) ==
LOC: LAB 11:47
PROVIDERS: ATTEND Physician Assistant
DX: R73.01 Impaired fasting glucose (principal); R53.83 Other fatigue
CPT/HCPCS: 36415; 83036; 84443

== ENCOUNTER 2023-02-26 12:50 | Outpatient (CLI) | payer MEDICARE, OTHER ==
[2023-02-26 13:05] LABS: BASOPHILS # (AUTO) 0.1 10^3/uL (0.0-0.1); BASOPHILS % (AUTO) 0.6 %; EOSINOPHILS # (AUTO) 0.2 10^3/uL (0.0-0.7); EOSINOPHILS % (AUTO) 2.4 %; HCT - HEMATOCRIT 39.8 % (37.0-47.0); HGB - HEMOGLOBIN 12.7 g/dL (12.0-16.0); LYMPHOCYTES # (AUTO) 2.5 10^3/uL (1.5-3.5); LYMPHOCYTES % (AUTO) 24.7 %; MEAN CORPUSCULAR HGB CONC 31.9 g/dL (32.0-36.0); MEAN CORPUSCULAR VOLUME 94.1 fL (81.0-99.0); MEAN PLATELET VOLUME 9.4 fL (7.9-10.8); MONOCYTES # (AUTO) 0.9 10^3/uL (0.0-1.0); MONOCYTES % (AUTO) 8.7 %; NEUTROPHILS # (AUTO) 6.3 10^3/uL (1.5-6.6); NEUTROPHILS % (AUTO) 63.2 %; PLT - PLATELET COUNT 257 10^3/uL (130-450); RED BLOOD COUNT 4.23 10^6/uL (4.20-5.40); RED CELL DISTRIBUTION WIDTH 16.7 % (12.0-15.0); WHITE BLOOD COUNT 9.9 x10^3/uL (4.8-10.8)
[2023-02-26 13:25] LABS: ESTIMATED AVERAGE GLUCOSE 126 mg/dL (70-100)
[2023-02-26 13:31] LABS: CREATININE 0.9 mg/dL (0.4-1.0); POTASSIUM 3.6 mmol/L (3.5-5.0)
== END 2023-02-26 12:51 | disposition home or self-care (01) ==
LOC: LAB 12:50
PROVIDERS: ATTEND Orthopaedic Surgery Orthopaedic Surgery of the Spine
DX: Z01.812 Encounter for preprocedural laboratory examination (principal); R73.9 Hyperglycemia, unspecified
CPT/HCPCS: 36415; 80048; 83036; 85025

== ENCOUNTER 2023-03-02 11:46 | Outpatient (CLI) | payer MEDICARE, OTHER | END 2023-03-02 11:47 | disposition home or self-care (01) | LOC: RT 11:46 | PROVIDERS: ATTEND Orthopaedic Surgery Orthopaedic Surgery of the Spine | DX: Z01.818 Encounter for other preprocedural examination (principal) | CPT/HCPCS: 93005 ==

== ENCOUNTER 2023-08-20 07:19 | Outpatient (CLI) | payer MEDICARE, OTHER ==
[2023-08-20 11:58] LABS: BASOPHILS % (AUTO) 0.5 %; EOSINOPHILS # (AUTO) 0.2 10^3/uL (0.0-0.7); EOSINOPHILS % (AUTO) 3.2 %; HCT - HEMATOCRIT 41.6 % (37.0-47.0); HGB - HEMOGLOBIN 12.9 g/dL (12.0-16.0); LYMPHOCYTES # (AUTO) 2.3 10^3/uL (1.5-3.5); LYMPHOCYTES % (AUTO) 31.1 %; MEAN CORPUSCULAR HEMOGLOBIN 29.5 pg (27.0-31.0); MEAN CORPUSCULAR VOLUME 95.2 fL (81.0-99.0); MEAN PLATELET VOLUME 10.5 fL (7.9-10.8); MONOCYTES # (AUTO) 0.9 10^3/uL (0.0-1.0); MONOCYTES % (AUTO) 11.4 %; NEUTROPHILS % (AUTO) 53.5 %; PLT - PLATELET COUNT 273 10^3/uL (130-450); RED BLOOD COUNT 4.37 10^6/uL (4.20-5.40); RED CELL DISTRIBUTION WIDTH 15.9 % (12.0-15.0); WHITE BLOOD COUNT 7.5 x10^3/uL (4.8-10.8)
[2023-08-20 12:22] LABS: ALBUMIN 4.1 g/dL (3.2-5.5); ALBUMIN/GLOBULIN RATIO 1.3 (1.0-2.2); ALKALINE PHOSPHATASE 74 IU/L (42-121); ALT ALANINE AMINOTRANSFERASE 14 IU/L (10-60); AST ASPARTATE AMINOTRANSFERASE 18 IU/L (10-42); BILIRUBIN,TOTAL 0.3 mg/dL (0.2-1.0); BUN - BLOOD UREA NITROGEN 19 mg/dL (6-20); CARBON DIOXIDE - CO2 33 mmol/L (21-32); CHLORIDE 103 mmol/L (101-111); CHOL/HDL RATIO 4.1 (<4.4); CHOLESTEROL 198 mg/dL; CREATININE 0.9 mg/dL (0.6-1.3); GFR - MDRD 60 (>89); GLUCOSE 106 mg/dL (74-104); HDL CHOLESTEROL 48 mg/dL; LDL CHOLESTEROL,CALCULATED 102 mg/dL; LDL/HDL RATIO 2.1 (<4.4); POTASSIUM 4.1 mmol/L (3.5-4.5); SODIUM 141 mmol/L (135-145); TOTAL PROTEIN 7.2 g/dL (6.4-8.9); TRIGLYCERIDES 238 mg/dL (48-352); VLDL CHOLESTEROL 48 mg/dL
[2023-08-20 12:23] LABS: ESTIMATED AVERAGE GLUCOSE 123 mg/dL (70-100); HEMOGLOBIN A1c% 5.9 % (4.27-6.07)
[2023-08-20 12:31] LABS: THYROID STIMULATING HORMONE 4.09 uIU/mL (0.34-5.60)
== END 2023-08-20 07:20 | disposition home or self-care (01) ==
LOC: LAB.N 07:19
PROVIDERS: ATTEND Physician Assistant
DX: I10 Essential (primary) hypertension (principal); E78.5 Hyperlipidemia, unspecified; E88.810 Metabolic syndrome
CPT/HCPCS: 36415; 80053; 80061; 83036; 83721; 84443; 85025

== ENCOUNTER 2023-09-06 14:23 | Outpatient (CLI) | payer MEDICARE, OTHER ==
--- NOTE | 2023-09-06 17:45 | DEXA Report ---
PROCEDURE: Dexa Spine and/or Hip INDICATIONS: POST MENOPAUSAL TECHNIQUE: Dual energy x-ray absorptiometry (DXA) was performed on a Compology System. Regions measur ed are the AP Spine, femoral neck, and if needed forearm. COMPARISON: None FINDINGS: Lumbar Spine: Bone Mineral Density 1.162 g/cm/cm,T score -0.1. Left Femoral Neck: Bone Mineral Density 0.812 g/cm/cm, T score -1.6. Left Hip: Bone Mineral Density 0.879 g/cm/cm,T score -1.0. (T score greater or equal to -1.0: NORMAL) (T score from -1.1 to -2.4: OSTEOPENIA) (T score less than or equal to -2.5 to: OSTEOPOROSIS) Impression: By WHO criteria, this patient has low bone density (osteopenia) of the left femoral neck. No osteopenia or osteoporosis of the lumbar spine. No osteopenia or osteoporosis of the left total hi p. Patients with diagnosis of osteoporosis or osteopenia should have regular bone mineral density assess ment. For those eligible for Medicare, routine testing is allowed once every 2 years. Testing frequ ency can be increased for patients who have rapidly progressing disease or for those who are receivin g medical therapy to restore bone mass. Reviewed by: Adelaida Peña MD on 09/06/2023 5:44 PM PDT Approved by: Adelaida Peña MD on 09/06/2023 5:44 PM PDT Station ID: [id number]
== END 2023-09-06 14:24 | disposition home or self-care (01) ==
LOC: DI 14:23
PROVIDERS: ATTEND Physician Assistant
DX: Z78.0 Asymptomatic menopausal state (principal); M85.88 Other specified disorders of bone density and structure, other site

== ENCOUNTER 2024-03-24 11:35 | Outpatient (CLI) | payer MEDICARE, OTHER ==
--- NOTE | 2024-03-25 08:55 | Mammography Report ---
BILATERAL DIGITAL SCREENING MAMMOGRAM 3D/2D: 03/24/2024 CLINICAL: Routine screening. Comparison is made to exams dated: 08/15/2021 mammogram, 01/03/2021 ultrasound, 01/03/2021 mammogram, mammogram, 12/03/2019 mammogram, and 11/13/2018 mammogram - [facility]. Both breasts are almost entirely fatty (category a/<25% glandular tissue). No significant masses, calcifications, or other findings are seen in either breast. There has been no significant interval change. IMPRESSION: NEGATIVE There is no mammographic evidence of malignancy. A 1 year screening mammogram is recommended. Based on the Tyrer Cuzick model (a risk assessment model) the patient's lifetime risk is 0.1% and her 10 year risk is 0.0%. According to the ACR, ACS, and NCCN guidelines, an annual breast MRI exam barbara g with mammogram is recommended if the patient's lifetime risk is 20% or greater. This exam was interpreted at Station ID: [id number]. NOTE: For mammograms, a report in lay terms will be sent to the patient. Approximately 15% of breast malignancies will not be visualized mammographically. In the management of a palpable breast mass, a negative mammogram must not discourage biopsy of a clinically suspicious lesion. Electronically Signed By: Rafi hale/troy:03/24/2024 12:15:32 letter sent: No_Letter ACR BI-RADS Category 1: Negative 3341F PARENCHYMAL PATTERN: (F) - The breast(s) demonstrate(s) diffuse fatty replacement. BI-RADS CATEGORY: (1) - 1 RECOMMENDATION: (ANNUAL) - Recommend routine annual screening mammography. [id number] 1 year screening LATERALITY: (B)
== END 2024-03-24 11:36 | disposition home or self-care (01) ==
LOC: DI.N 11:35
DX: Z12.31 Encounter for screening mammogram for malignant neoplasm of breast (principal)